=== PATIENT | male | born 1990 | race Caucasian/White ===

== ENCOUNTER 2017-08-26 16:12 | Emergency (ER) | payer SELFPAY ==
[2017-08-26 16:12] VITALS: BP 131/80; PULSE 80; RESP 22; TEMP 36.9; O2SAT 100; BMI 22.4
--- NOTE | 2017-08-26 16:21 | ED.RN ---
pt has erythema on toes of both feet bilaterally. pt reports burning sensation and discomfort, pt denies ithcing. reports it started yesterday after pouring concrete yesterday. states he was wearing rubber boots and sweating. no relief with cream at home. denies drainage.
--- NOTE | 2017-08-26 16:47 | ED.VISSUMM ---
- ER Visit Summary Date of Service: 08/26/17 Chief Complaint: Bilateral feet redness History of Present Illness: The patient is a 27 M no senior past medical history. Gentleman was helping a friend pour cement yesterday he said he was wearing boots but after that he has had redness swelling and burning to both feet. No prior history. Denies other complaints. Physical Examination: Vital signs stable afebrile. HEENT exam unremarkable. Lungs clear to auscultation. Heart regular rate and rhythm no murmur. Abdomen soft nontender. Extremities moving all 4. Neurovascular intact. Both feet are mildly red primarily around the periphery and toes and mildly swollen. Both are neurovascular intact with strong DP pulses and cap refill. They are mildly tender. Exam is consistent with a contact dermatitis or irritation from the cement. This is not cellulitis this is not infection. Test Results: None Emergency Department Course and Treatment: [] Treatment Plan: Discharged to home on Motrin for pain and swelling. And Benadryl for reaction. Disposition: Discharge Impression: Bilateral feet red and swelling secondary to contact dermatitis from exposure to cement This note was generated with [employer] dictation software. It may contain incorrect words, spelling, and punctuation that were not noted in review of the chart prior to signing ED Disposition - Plan for ED Patient: Chief Complaint: Wound Check Referrals: Care Physician,No Primary [Primary Care Provider] -
--- NOTE | 2017-08-26 16:48 | ED.DEP ---
ED Disposition - Plan for ED Patient: Disposition: Home or Assisted Living Chief Complaint: Wound Check Instructions: ED Dermatitis Contact Referrals: Juno Stern MD [STAFF PHYSICIAN] - 3-5 Days if not improving Additional Instructions: Ice and elevate feet. Motrin for pain and swelling. Benadryl for reaction. The pain and swelling should progressively begin getting better along with the redness resolving.
== END 2017-08-26 17:00 | disposition home or self-care (01) ==
PROVIDERS: Emergency Provider Emergency Medicine
DX: L24.89 Irritant contact dermatitis due to other agents (principal); Z72.0 Tobacco use
CPT/HCPCS: 99282

== ENCOUNTER 2017-10-05 18:07 | Emergency (ER) | payer SELFPAY ==
[2017-10-05 18:07] VITALS: BP 136/84; PULSE 81; RESP 16; TEMP 37.2; O2SAT 100; BMI 22.4
--- NOTE | 2017-10-05 19:18 | ED.VISSUMM ---
- ER Visit Summary Date of Service: 10/05/17 Chief Complaint: Entire forehead swollen History of Present Illness: The patient is a 27 M who fell out of bed on Wednesday. He states he was unconscious for hour. He denies headache, visual disturbance, ringing in his ears, neck pain, paresthesia, anesthesia or motor weakness. He denied nausea vomiting. He denied any problems with speech or swallowing. He denies difficulty walking. He initially had a subcutaneous hematoma on the right side of forehead. Now the entire forehead is swollen. His only concern is the fact that his entire forehead is now swollen. He has absolutely no symptoms. Physical Examination: Patient has soft tissue swelling of the forehead. Head is atraumatic normocephalic. Pupils are equal round reactive. Extraocular muscles are intact. TMs are pearly white with landmarks noted. Nares patent with no drainage. Posterior pharynx without erythema or exudate. Uvula is midline. There is no dysphonia or dysphasia. Trachea is midline. There is no stridor with auscultation of the neck. C-spine was cleared per Nexus criteria. Heart is regular without murmur, gallop or rub. S1 and S2 are normal. Lungs are clear to auscultation with good movement of air bilaterally. Abdomen soft nontender with normal bowel sounds. GCS is 15. Patient is alert and oriented ?3. Motor is 5/5. Sensation is intact. DTRs are symmetric without clonus or Babinski. Cranial nerves II through XII are intact. Finger to nose to finger was performed adequately. Test Results: None Emergency Department Course and Treatment: Since patient has a normal neurologic exam the fact that this occurred several days ago per the [place] head rule in the [place] rule radiologic imaging is not indicated. Treatment Plan: Appropriate home-going instructions Disposition: Discharge to home with spouse Impression: 1. Concussion with loss of consciousness initial encounter 2. Forehead abrasion and hematoma initial encounter This note was generated with [employer] dictation software. It may contain incorrect words, spelling, and punctuation that were not noted in review of the chart prior to signing ED Disposition - Plan for ED Patient: Disposition: Home or Assisted Living Chief Complaint: Head Injury Instructions: ED Concussion, ED Hematoma Referrals: Care Physician,No Primary [Primary Care Provider] - Binta Eubanks [NON-STAFF] - As Needed
--- NOTE | 2017-10-05 19:23 | ED.DCSUM_ITS ---
- ER Visit Summary Date of Service: 10/05/17 Chief Complaint: Entire forehead swollen History of Present Illness: The patient is a 27 M who fell out of bed on Wednesday. He states he was unconscious for hour. He denies headache, visual disturbance, ringing in his ears, neck pain, paresthesia, anesthesia or motor weakness. He denied nausea vomiting. He denied any problems with speech or swallowing. He denies difficulty walking. He initially had a subcutaneous hematoma on the right side of forehead. Now the entire forehead is swollen. His only concern is the fact that his entire forehead is now swollen. He has absolutely no symptoms. Physical Examination: Patient has soft tissue swelling of the forehead. Head is atraumatic normocephalic. Pupils are equal round reactive. Extraocular muscles are intact. TMs are pearly white with landmarks noted. Nares patent with no drainage. Posterior pharynx without erythema or exudate. Uvula is midline. There is no dysphonia or dysphasia. Trachea is midline. There is no stridor with auscultation of the neck. C-spine was cleared per Nexus criteria. Heart is regular without murmur, gallop or rub. S1 and S2 are normal. Lungs are clear to auscultation with good movement of air bilaterally. Abdomen soft nontender with normal bowel sounds. GCS is 15. Patient is alert and oriented ? 3. Motor is 5/5. Sensation is intact. DTRs are symmetric without clonus or Babinski. Cranial nerves II through XII are intact. Finger to nose to finger was performed adequately. Test Results: None Emergency Department Course and Treatment: Since patient has a normal neurologic exam the fact that this occurred several days ago per the [place] CT head rule in the [place] rule radiologic imaging is not indicated. Treatment Plan: Appropriate home-going instructions Disposition: Discharge to home with spouse Impression: 1. Concussion with loss of consciousness initial encounter 2. Forehead abrasion and hematoma initial encounter This note was generated with [employer] dictation software. It may contain incorrect words, spelling, and punctuation that were not noted in review of the chart prior to signing ED Disposition - Plan for ED Patient: Disposition: Home or Assisted Living Chief Complaint: Head Injury Instructions: ED Concussion, ED Hematoma Referrals: Care Physician,No Primary [Primary Care Provider] - Binta Eubanks [NON-STAFF] - As Needed
--- NOTE | 2017-10-05 19:38 | ED.RN ---
DISCHARGE INSTRUCTIONS GIVEN TO AND REVIEWED WITH PATIENT, PATIENT DENIES QUESTIONS OR CONCERNS AND VOICES UNDERSTANDING OF DISCHARGE INSTRUCTIONS. PT AMBULATES OUT OF ROOM WITHOUT DIFFICULTY.
== END 2017-10-05 19:40 | disposition home or self-care (01) ==
PROVIDERS: Emergency Provider Emergency Medicine
DX: S06.0X1A Concussion with loss of consciousness of 30 minutes or less, initial encounter (principal); W06.XXXA Fall from bed, initial encounter; Y93.9 Activity, unspecified; Y92.003 Bedroom of unspecified non-institutional (private) residence as the place of occurrence of the external cause; Y99.9 Unspecified external cause status; Z72.0 Tobacco use; S00.81XA Abrasion of other part of head, initial encounter
CPT/HCPCS: 99282